=== PATIENT | female | born 1975 | race Caucasian/White ===

== ENCOUNTER 2019-11-12 01:12 | Outpatient (CLI) | payer OTHER, SELFPAY ==
[2019-11-12 16:32] LABS: SARS-CoV-2 RNA PCR Negative
== END 2019-11-12 01:13 | disposition home or self-care (01) ==
LOC: ANHCOVIDDT 01:12
PROVIDERS: Visit Provider Obstetrics & Gynecology
DX: Z01.812 Encounter for preprocedural laboratory examination (principal); Z20.828 Contact with and (suspected) exposure to other viral communicable diseases
CPT/HCPCS: 87635; C9803; U0003

== ENCOUNTER 2019-11-14 00:48 | Day surgery (SDC) | payer OTHER, SELFPAY ==
[2019-11-05 13:13] VITALS: BMI 39.1
--- NOTE | 2019-11-13 14:27 | WPDANESEPPF ---
Anes - Initial Pre Proc Eval Procedure: Operation Date: 11/14/19 08:30 Proposed Procedures p Bilateral Salpingo-Oophorectomy - Lashonda Cunha MD Date/Time: 11/13/19 14:27 Surgeon: Lashonda Cunha MD Pre Op Diagnosis: Cyst Of Ovaries Patient Data Age: 43 Gender: F Height: 1.65 m Weight: 106.59 kg Allergies Allergy/AdvReac Type Severity Reaction Status Date / Time Penicillins Allergy Unknown Rash Verified 11/05/19 13:13 Home Medications Medication Instructions Recorded Confirmed Type acetaminophen 650 mg PO Q4H PRN 11/05/19 11/05/19 History albuterol sulfate 1 puff INHALATION Q4-6H PRN 11/05/19 11/05/19 History alprazolam 1 mg PO DAILY PRN 11/05/19 11/05/19 History aspirin 81 mg PO DAILY 11/05/19 11/05/19 History atorvastatin 40 mg PO HS 11/05/19 11/05/19 History hydrocodone-acetaminophen [[place]] 1 tablet PO Q12H PRN 11/05/19 11/05/19 History ibuprofen 800 mg PO TID PRN 11/05/19 11/05/19 History meloxicam 15 mg PO DAILY 11/05/19 11/05/19 History methocarbamol 500 mg PO TID PRN 11/05/19 11/05/19 History nabumetone 500 mg PO BID 11/05/19 11/05/19 History nicotine [Nicoderm CQ] 1 patch TRANSDERMAL DAILY 11/05/19 11/05/19 History olanzapine 20 mg PO HS 11/05/19 11/05/19 History oxcarbazepine 600 mg PO BID 11/05/19 11/05/19 History pantoprazole 40 mg PO QAM 11/05/19 11/05/19 History paroxetine HCl 20 mg PO QAM 11/05/19 11/05/19 History polyethylene glycol 3350 [Miralax] 17 g PO DAILY 11/05/19 11/05/19 History propranolol 20 mg PO Q12H 11/05/19 11/05/19 History quetiapine 600 mg PO HS 11/05/19 11/05/19 History sennosides [senna] 17.2 mg PO HS PRN 11/05/19 11/05/19 History simethicone [Mi-Acid Gas 80 mg PO TID PRN 11/05/19 11/05/19 History Relief(simethicon)] tizanidine 4 mg PO Q8H PRN 11/05/19 11/05/19 History Patient hx anesthesia problems: none Family hx anesthesia problems: none [facility] Past Medical History Medical History (Updated 11/13/19 @ 14:30 by Prem Murillo MD) Alcohol abuse HISTORY Anxiety Asthma Back pain Bipolar 1 disorder Hypercholesterolemia Obesity Substance abuse HISTORY Surgical History Surgical History (Updated 11/13/19 @ 14:29 by Prem Murillo MD) Hx of spinal surgery 10/12/19- REPAIR BULGING DISC NECK Family History Family History (Updated 02/10/12 @ 07:33 by DOCTOR UNKNOWN) Other Diabetes mellitus Family history of alcoholism Family history of mental disorder Social History Social History Smoking packs per day: 2.5 Smoking cigarettes per day: 50.0 Years smoked: 15 Smoking pack-years: 37.50 Smoking status: Former smoker Tobacco type: cigarettes Alcohol intake: former Alcohol use details: HISTORY ALCOHOL ABUSE- CLEAN 1 MONTH AGO Substance use: former Substance use type: methamphetamine Last use: 11 MONTHS AGO Living arrangements: longterm Additional living arrangements comments: CALL FOR [facility] concerns: No Anes - Eval Final PreProcedure Day of Procedure 11/13/19 14:27 Patient weight: obese Heart: regular rate and rhythm Lungs: clear to auscultation and normal air movement Airway: Mallampati scale class II Neurological: alert and oriented Last oral intake: >/= 8 hours ASA classification: III Emergent: no Anesthetic plan: proceed Anesthesia type and monitoring: general ETT Informed Consent: The patient's anesthetic plan and its attendant risks and benefits were discussed with the patient/family/POA. Questions were solicited and answers provided to the satisfaction of the patient/family/POA.
[2019-11-14] VITALS (10 sets, daily range): BP systolic 148–185; BP diastolic 81–98; PULSE 82–94; RESP 10–20; TEMP 36.2–36.3; O2SAT 92–99
--- NOTE | 2019-11-14 05:58 | ECG_ITS ---
Measurements Intervals [place] Rate: 82 P: 20 MI: 194 QRS: 29 QRSD: 81 T: 45 QT: 386 QTc: 452 Interpretive Statements SINUS RHYTHM BASELINE ARTIFACT- I, II, III, AVR, AVL, AVF NORMAL ECG Electronically Signed On 11-14-2019 8:23:18 CDT by Gulshan Aldridge D.O.
[2019-11-14] MEDS: LACTATED RINGERS 1,000 ML 30 ML IV CONT ×2 (07:50→10:09)
[2019-11-14] MEDS: ACETAMINOPHEN 500 MG TABLET 1000 MG PO (07:56)
[2019-11-14] MEDS: KETOROLAC 15 MG/ML VIAL (*BKC) IV PUSH (07:56)
--- NOTE | 2019-11-14 08:25 | WPDHPUPDATE1 ---
History and Physical Update Update Date/Time: 11/14/19 08:25 History and Physical has been reviewed, including an updated exam of the patient. There are NO changes in the patient's condition. Risks, benefits, and alternatives have been discussed and questions answered. Patient agrees to proceed with procedure.
--- NOTE | 2019-11-14 10:16 | P.OP_ITS ---
Procedure Note - Detailed Date of procedure: 11/14/19 Pre-op diagnosis: Cyst Of Ovaries Pelvic pain Procedure performed: laparoscopic right salpingo oophorectomy. , adhesiolysis- 30 minutes Description of procedure: The patient was taken the operating room. She was prepped and draped in the dorsal lithotomy position after induction of general anesthesia. A 5 mm left upper quadrant incision was made in the abdominal skin with a scalpel. A 5 mm trocar was inserted the intra-abdominal cavity under direct visualization of the scope. A 11 mm left lower quadrant incision was made with the scalp on the abdominal skin and a 11 mm trocar was inserted the intra-abdominal cavity under direct visualization of the scope. A 5 mm infraumbilical incision was made with scalpel and a 5 mm trocar was inserted into the intra-abdominal cavity under direct visualization of the scope. Adhesiolysis was performed throughout the pelvis. The colon was adherent to the bilateral pelvic sidewalls. This was done with sharp and blunt dissection. The left ovary and tube were absent. 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 The tibia was placed in an endobag and taken at the left lower quadrant trocar site. The pelvis was irrigated with copious amounts of normal saline. The pneumoperitoneum was reduced. The trocars were removed. The patient was taken recovery room stable condition. Sponge lap and needle counts were correct x2. Anesthesia: GETA Surgeon: Lashonda Cunha MD Estimated blood loss (mL): 100 Drains: No Packing: No Complications: No immediate complications Condition: stable Disposition: PACU Findings: the ascending colon appeared dusky, after some adhesiolysis the area of the colon in question appeared to have good blood supply. It was normal and color. There were adhesions between the colon and the bilateral pelvic sidewalls, the left tube and ovary were absent. There was a cystic right ovary. It appeared to be a corpus luteum cyst.
--- NOTE | 2019-11-14 11:17 | SUR.PHASEI ---
Dr. Murillo aware of BP running high and said to continue to monitor.
== END 2019-11-14 12:41 | disposition home or self-care (01) ==
PROVIDERS: PCP Internal Medicine; Visit Provider Obstetrics & Gynecology
PROC: (CPT 49320; principal; 2019-11-14 08:30)
DX: N83.11 Corpus luteum cyst of right ovary (principal); N73.6 Female pelvic peritoneal adhesions (postinfective); R10.2 Pelvic and perineal pain; J45.909 Unspecified asthma, uncomplicated; F31.9 Bipolar disorder, unspecified; E78.00 Pure hypercholesterolemia, unspecified; E66.9 Obesity, unspecified; Z68.38 Body mass index [BMI] 38.0-38.9, adult; Z79.82 Long term (current) use of aspirin; Z87.891 Personal history of nicotine dependence
CPT/HCPCS: 58661; 88305; 93005; A9270; J1100; J1885; J2250; J2405; J2704; J3010; J7120